=== PATIENT | male | born 1995 | race Caucasian/White ===

== ENCOUNTER 2017-10-19 10:05 | Emergency (ER) | payer OTHER ==
[~2017-10-19] VITALS: Ht 180.3 cm; Wt 81.7 kg
[~2017-10-19 10:05] MED LIST: Bactrim Ds Tab1 EACH PO; Keflex500 MG PO
== END 2017-10-19 12:45 | disposition home or self-care (01) ==
LOC: ER 10:05
DX: S51.812A Laceration without foreign body of left forearm, initial encounter (principal); S31.114A Laceration without foreign body of abdominal wall, left lower quadrant without penetration into peritoneal cavity, initial encounter; S00.03XA Contusion of scalp, initial encounter; Z79.899 Other long term (current) drug therapy; Z79.2 Long term (current) use of antibiotics; F17.200 Nicotine dependence, unspecified, uncomplicated; Y04.8XXA Assault by other bodily force, initial encounter
CPT/HCPCS: 12004; 99283